=== PATIENT | male | born 1980 | race African-American/Black ===

== ENCOUNTER 2021-10-23 10:45 | Outpatient (REF) | payer MEDICAID, SELFPAY ==
--- NOTE | ~2021-10-23 | XR_ITS ---
EXAMINATION: XR ABDOMEN KUB CLINICAL INDICATION: Right lower quadrant pain x4 months. COMPARISON: None TECHNIQUE: AP view of the abdomen. FINDINGS: There is scattered stool and gas seen in colon without distention. There is no organomegaly. No radiopaque renal calculi. No gross bony abnormality. XR/XR abdomen 1V IMPRESSION: Mild constipation.
== END 2021-10-23 10:46 | disposition home or self-care (01) ==
LOC: HO.XRAY 10:45
PROVIDERS: Visit Provider Internal Medicine
DX: R10.31 Right lower quadrant pain (principal)
CPT/HCPCS: 74018

== ENCOUNTER 2022-04-11 15:42 | Outpatient (REF) | payer OTHER, SELFPAY ==
[2022-04-11 16:48] LABS: Basophils Percent Auto 0.5 % (0-2); Eosinophils Absolute Auto 0.1 X10*3/uL (0.0-0.4); Eosinophils Percent Auto 1.5 % (0-4); Hematocrit 42.9 % (42.0-52.0); Hemoglobin 14.9 g/dl (14.0-18.0); Imm Gran Abs Auto 0.02 X10*3/uL (0.00-0.03); Imm Gran Pct Auto 0.3 % (0.0-0.4); Lymphocytes Absolute Auto 2.2 X10*3/uL (1.2-4.9); Lymphocytes Percent Auto 27.9 % (20-40); MANUAL DIFF FLAG NO; Mean Corpuscular HGB Conc 34.7 g/dl (31.0-36.0); Mean Corpuscular Hemoglobin 29.9 pg (27.0-33.0); Mean Platelet Volume 10.3 fL (9.4-12.4); Monocytes Absolute Auto 0.6 X10*3/uL (0.1-1.2); Monocytes Percent Auto 7.1 % (2-11); Neutrophils Percent Auto 62.7 % (45-73); Platelet Count 249 X10*3/uL (160-400); Red Blood Count 4.99 X10*6/uL (4.60-5.80); Red Cell Distribution Width 13.1 % (11.0-16.0); White Blood Count 7.9 X10*3/uL (4.8-10.8)
[2022-04-11 17:26] LABS: Erythrocyte Sedimentation Rate 8 MM/HR (0-15)
[2022-04-11 19:23] LABS: Alanine Aminotransferase 35 U/L (0-40); Albumin Level 4.5 g/dL (3.5-5.0); Alkaline Phosphatase 50 U/L (39-117); Anion Gap 15 (12-20); Aspartate Amino Transferase 31 U/L (5-37); Bilirubin Total 0.4 mg/dL (0.0-1.0); Blood Urea Nitrogen 14 mg/dL (9-16); C Reactive Protein 0.32 mg/dL (< or = 0.50); Calcium 9.9 mg/dL (8.4-10.2); Carbon Dioxide 27 mmol/L (22-29); Chloride 100 mmol/L (96-108); Estimated Glomerular Filt Rate > 60; Glucose Random 89 mg/dL (60-115); Sodium 138 mmol/L (135-145)
[2022-04-11 19:44] LABS: Thyroid Stimulating Hormone 0.58 uIU/mL (0.32-4.0)
== END 2022-04-11 15:43 | disposition home or self-care (01) ==
LOC: HO.LAB 15:42
PROVIDERS: Visit Provider Physician Assistant
DX: R10.9 Unspecified abdominal pain (principal)
CPT/HCPCS: 36415; 80053; 84443; 85025; 85652; 86140; 99202

== ENCOUNTER 2023-05-18 09:08 | Outpatient (REF) | payer OTHER, SELFPAY ==
[2023-05-18 14:24] LABS: MANUAL DIFF FLAG NO
[2023-05-18 14:28] LABS: Basophils Absolute Auto 0.1 X10*3/uL (0.0-0.2); Basophils Percent Auto 0.8 % (0-2); Eosinophils Absolute Auto 0.1 X10*3/uL (0.0-0.4); Hematocrit 44.6 % (42.0-52.0); Hemoglobin 14.8 g/dl (14.0-18.0); Imm Gran Abs Auto 0.02 X10*3/uL (0.00-0.03); Imm Gran Pct Auto 0.3 % (0.0-0.4); Lymphocytes Absolute Auto 2.5 X10*3/uL (1.2-4.9); Lymphocytes Percent Auto 38.7 % (20-40); Mean Corpuscular HGB Conc 33.2 g/dl (31.0-36.0); Mean Corpuscular Volume 87.3 fL (80.0-98.0); Monocytes Absolute Auto 0.5 X10*3/uL (0.1-1.2); Monocytes Percent Auto 7.3 % (2-11); Neutrophils Absolute Auto 3.3 x10*3/uL (2.0-8.3); Neutrophils Percent Auto 50.9 % (45-73); Platelet Count 257 X10*3/uL (160-400); Red Blood Count 5.11 X10*6/uL (4.60-5.80); Red Cell Distribution Width 13.6 % (11.0-16.0); White Blood Count 6.4 X10*3/uL (4.8-10.8)
[2023-05-18 15:17] LABS: Alanine Aminotransferase 32 U/L (0-40); Albumin Level 4.4 g/dL (3.5-5.0); Alkaline Phosphatase 46 U/L (39-117); Anion Gap 17 (12-20); Aspartate Amino Transferase 29 U/L (5-37); Bilirubin Total 0.7 mg/dL (0.0-1.0); Blood Urea Nitrogen 19 mg/dL (9-16); Calcium 9.6 mg/dL (8.4-10.2); Carbon Dioxide 26 mmol/L (22-29); Chloride 101 mmol/L (96-108); Cholesterol 221 mg/dL; Estimated Glomerular Filt Rate > 60; Glucose Fasting 70 mg/dL (60-99); HDL Cholesterol 35 mg/dL; LDL Cholesterol Calculated 148 mg/dl; Potassium 4.2 mmol/L (3.3-5.1); Sodium 140 mmol/L (135-145); Triglycerides 194 mg/dL
[2023-05-18 15:34] LABS: TSH reflex Free T4 0.81 uIU/mL (0.32-4.0)
== END 2023-05-18 09:09 | disposition home or self-care (01) ==
LOC: HO.CHCLDS 09:08
PROVIDERS: Visit Provider Internal Medicine
DX: I10 Essential (primary) hypertension (principal)
CPT/HCPCS: 36415; 80053; 80061; 84443; 85025

== ENCOUNTER 2023-06-30 08:03 | Outpatient (REF) | payer OTHER, SELFPAY ==
--- NOTE | ~2023-06-30 | CT_ITS ---
EXAMINATION: CT ABDOMEN AND PELVIS WITH CONTRAST CLINICAL INFORMATION: Right lower quadrant pain. COMPARISON: Abdominal radiograph 10/23/2021. TECHNIQUE: Multidetector volumetric images were obtained from the superior aspect of the liver through the pubic symphysis following administration 85 mL of Omnipaque 350 intravenous contrast. Sagittal and coronal reformatted images were obtained on the technologist's workstation. Oral contrast: No This CT examination was performed using dose optimization techniques as appropriate, variously including the following: *Automated exposure control *Adjustment of mA and/or kV according to patient size (this includes techniques or standardized protocols for targeted exams where dose is matched to indication/reason for exam; i.e. extremities or head) *Use of iterative reconstruction technique DLP: 535 mGy-cm FINDINGS: LUNG BASES: The visualized lung bases are unremarkable. LIVER, GALLBLADDER, AND BILIARY TREE: The liver is mildly enlarged measuring 19 cm in length. Attenuation appears normal. No cirrhotic morphology. No discrete liver mass. No biliary ductal dilatation. The gallbladder is unremarkable with no evidence of radiopaque gallstones, gallbladder wall thickening, or obvious pericholecystic inflammatory changes. PANCREAS: No discrete pancreatic mass. No ductal dilatation. SPLEEN: Normal. ADRENAL GLANDS: No adrenal mass. KIDNEYS AND URETERS: The kidneys are normal in size, shape, and attenuation. No hydronephrosis, hydroureter, or calculi seen. Tiny hypodensity in the lower pole left kidney is too small to characterize therefore classified Bosniak 2. No follow-up imaging is recommended. No perinephric stranding. BLADDER: Unremarkable. GASTROINTESTINAL TRACT: The small bowel is normal in caliber. The large bowel is normal in caliber. The appendix is normal. No mesenteric mass or fluid. No focal bowel wall thickening. No discrete bowel mass. ABDOMINAL WALL: No significant hernia is appreciated. LYMPH NODES: No lymphadenopathy. VASCULAR: No aortic aneurysm. PELVIC VISCERA: The prostate and seminal vesicles are unremarkable. OSSEOUS STRUCTURES: Mild degenerative changes in the spine. Mild degenerative changes in the hips. CT/CT abdomen pelvis w IV con IMPRESSION: No explanation for right lower quadrant abdominal pain. Normal appendix. Mild hepatomegaly. Normal size spleen. Fleischner guidelines were followed.
[2023-06-30] MEDS: iohexoL 350 MG/ML 100 ML INFUS..BTL 85 ML IV (10:08)
== END 2023-06-30 08:04 | disposition home or self-care (01) ==
LOC: HO.CT 08:03
PROVIDERS: PCP Internal Medicine; Visit Provider Internal Medicine
DX: R10.31 Right lower quadrant pain (principal)
CPT/HCPCS: 74177; Q9967

== ENCOUNTER 2024-06-20 15:37 | Outpatient (REF) | payer OTHER, SELFPAY ==
[2024-06-21 16:47] LABS: Lyme Abs Screen <0.90 index
== END 2024-06-20 15:38 | disposition home or self-care (01) ==
LOC: HO.CHCLDS 15:37
PROVIDERS: Visit Provider Internal Medicine
DX: R20.0 Anesthesia of skin (principal); R20.2 Paresthesia of skin
CPT/HCPCS: 36415; 86617; 86618

== ENCOUNTER 2025-07-29 13:28 | Outpatient (AMB) | payer OTHER, SELFPAY ==
--- NOTE | 2025-07-29 13:39 | A.OFFVIS_ITS ---
Intake Visit Reasons: [facility]ILLER/HHC referral for LE swelling/ Intake Note: New patient presents for leg swelling, right leg is worse. Has been a few months. Legs get stiff and at times painful behind the right knee. Accompanied by: Self / Same As Patient Allergies No Known Allergies Allergy (Verified 07/29/25 13:41) HPI HPI BEEF KILLER/HHC referral for LE swelling/ : Details: Very pleasant 45-year-old patient presents for painful varicose veins. Complaints include pain over varicosities, swelling of lower extremities, cramping, fatigue, and heaviness of the lower extremities. It has been affecting there daily activities including walking. It is noted more so in right leg. He is in particular concerned about a cluster of varicosities in his right thigh. Patient reports of what sounds to be sclero injections in the right thigh venous cluster that happened a proximally 10 years ago of what appears to be at [facility]. Patient denies any history of DVT/ PE. Patient denies any history of phlebitis. Trial of compression includes - [id number] They now present for vascular evaluation regarding their varicose veins. [facility] Family History Sister Diabetes Mother Heart disease Maternal Grandmother Diabetes Social History Household Members: Spouse and Children Alcohol intake: never Patient Tobacco Use Status: Never used Tobacco Review of Systems Const Reports as per HPI ENT Reports no additional complaints Card Denies chest pain, Denies chest pain at rest and Denies chest pain with activity Resp Denies chest congestion and Denies cough GI Reports no additional complaints Musc Details: pain over varicosities, aching of lower extremities, swelling, cramping, heaviness and tiredness, itching Denies abnormal gait Skin/Breast Reports pruritus and Denies wounds Neuro Reports no additional complaints and Denies abnormal gait Psych Denies no additional complaints Physical Exam Const General: cooperative, healthy appearing and comfortable Orientation/consciousness: oriented to person, oriented to place and oriented to time Neck Carotids: no bruits Chest Chest palpation & inspection: normal inspection of the chest and normal palpation of entire chest wall Resp Effort & Inspection: normal respiratory effort and able to speak in complete sentences Cardio Rate: regular rate Heart sounds: S1 normal heart sound present and S2 normal heart sound present Peripheral pulses: Peripheral pulses 2+ throughout GI Inspection: Yes normal to inspection Skin Other: +2 edema, large rope-like varicosities greater than 4 mm right thigh cluster CEAP Classification C4 - skin color changes Ep - Etiology Primary As - superficial veins P - reflux General skin exam: dry skin Neuro General: oriented to person, oriented to place and oriented to time Extrem Right lower extremity: full ROM, normal capillary refill and edema Left lower extremity: full ROM, normal capillary refill and edema Psych Mental Status: mental status grossly normal Assessment & Plan Assessment & Plan (1) Varicose veins of right lower extremity with inflammation: Code(s): I83.11 - Varicose veins of right lower extremity with inflammation Category: Medical Plan: In short, the patient has evidence of venous insufficiency. I have discussed the pathophysiology with the patient. In addition I have provided informational material regarding venous disease to the patient. We have discussed conservative measures including compression, elevation, and exercise. I have also provided a handout regarding appropriate use of compression stockings and where to purchase good compression stockings as well. I have taken the liberty of ordering venous insufficiency testing with the patient. They will follow up with me after testing. The patient had an opportunity to ask questions regarding the treatment plan. All questions were answered. Imaging studies, laboratory studies and physical exam results were discussed and reviewed in detail. No major barriers to understanding were identified. The patient expressed understanding and agreement with the above treatment plan. The patient is aware they should contact our office by phone for worsening of the current condition or the appearance of new symptoms. Thank you for allowing me to participate in the vascular care of this patient. If you have any questions or concerns regarding the treatment for the above condition please do not hesitate to contact me. The office telephone contact is [phone]. This note is constructed using voice recognition software. While every effort has been made to ensure accuracy, social staff worker errors may have been included. Thank you for allowing me to participate in the care of your patient. Yours sincerely, Antonino Lipscomb MD, FACS, R.P.V.I. Orders: Orders US venous duplex LE BI Today I83.11 - Varicose veins of right lower extremity with inflammation Coding Level of Care Code New Pt Level 4 (38342) Diagnoses Varicose veins of right lower extremity with inflammation I83.11
--- OUTSIDE RECORDS SUMMARY | 2025-07-29 16:20 | XMS_ITS | Clinical Summary ---
Author Organization [employer] Address [address] [place] [address] Care Team Providers Care Medical Library Assistant Name Role Phone Carla Medrano MD Primary Care Provider Allergies No known active allergies Medications lisinopril-hydroC HLOROthiazide 20-25 MG tabletIndications :Primary hypertension Take 1 tablet by mouth in the morning. 30 tablet 3 Active ketoconazole (Nizoral) 2 % shampooIndication s:Pityriasis versicolor Apply topically 2 (two) times a week. 120 mL 11 3 Active Diclofenac Sodium 1 % gelIndications:Ch ronic midline low back pain without sciatica To apply to the affected area 4 times a day 100 g 3 4 Active lisinopril-hydroC HLOROthiazide 20-25 MG tabletIndications :Primary hypertension Take 1 tablet by mouth in the morning. 90 tablet 1 4 Active dexAMETHasone (Decadron) 4 MG tabletIndications :Tingling of right upper extremity Take 1 tablet (4 mg) by mouth Once per day for 3 days. 3 tablet 4 Active methocarbamol (Robaxin) 750 MG tabletIndications :Neck pain Take 1 tablet (750 mg) by mouth 4 times daily for 10 days. 40 tablet 4 Active lisinopril-hydroC HLOROthiazide 20-25 MG tabletIndications :Primary hypertension TAKE ONE TABLET BY MOUTH EVERY MORNING 90 tablet 1 5 Active methocarbamol (Robaxin) 750 MG tabletIndications :Neck pain,Acute pain of right shoulder,Acute midline low back pain without sciatica Take 1 tablet (750 mg) by mouth 4 times daily for 10 days. 40 tablet 5 Active meloxicam (Mobic) 15 MG tabletIndications :Neck pain,Acute pain of right shoulder,Acute midline low back pain without sciatica Take 1 tablet (15 mg) by mouth Once per day. 30 tablet 11 5 02/25/20 26 Active triamcinolone (Kenalog) 0.1 % ointmentIndicatio ns:Hx of nummular eczema Apply topically 2 times daily. 30 g 5 Active Active Problems Problem Noted Date Diagnosed Date Hypertension 01/10/2022 Esophagitis 09/21/2015 Polyp of colon 09/21/2015 Encounters Date Type Department Care Team Description 05/28/2025 9:00 AM EDT Office Visit [facility] [address] [place] [address] Carla Medrano MD Primary hypertension (Primary Dx); Hx of nummular eczema; Venous insufficiency; Acute pain of right knee; Dietary counseling; Exercise counseling; Class 1 obesity due to excess calories with serious comorbidity and body mass index (BMI) of 33.0 to 33.9 in adult 05/28/2025 Telephone [facility] [address] [place] [address] Carla Medrano MD Durable Medical Equipment 05/28/2025 Travel from Last 3 Months Immunizations Immunization Administration Dates Next Due Influenza injectable quadriv alent preservative free 07/13/2023,09/29/2022,07/28/2017 Tdap 04/16/2019,07/28/2017 Family History Medical History Relation Name Comments Stroke Brother Depression Mother hypertension Mother Diabetes type I Sister Relation Name Status Comments Brother Mother Sister Social History Tobacco Use Types Packs/Day Years Used Date Smoking Tobacco: Former Cigarettes 1 4 1 998 - 2001 Smokeless Tobacco: Never Tobacco Cessation:Counseling Given: No Depression Answer Date Recorded Patient Health Questionnaire-9 Score 7 02/24/2025 Patient Health Questionnaire-9 Score 7 02/24/2025 Last PHQ-9: Questionnaire Data Not on file 0 02/24/2025 Housing Stability Answer Date Recorded What is your housing situation today? I have kamari martins 02/24/[address] you li ve. Do you have problems with any of the following? None of the above 02/24/2025 Food Insecurity Answer Date Recorded Within the past 12 months, y ou worried that your food would run out before you got money to buy more: Never True 02/24/2025 Within the past 12 months,th e food you bought just didn't last and you didn't have enough money to get more: Never True 09/2025 Transportation Answer Date Recorded In the past 12 months, has l ack of transportation kept you from medical appts, meetings, work or from getting things needed for daily living? No 02/24/2025 Utilities Answer Date Recorded In the past 12 months, has t he electric, gas, oil or water company threatened to shut off services in your home? No 02/24/2025 Depression Answer Date Recorded Patient Health Questionnaire-2 Score 1 02/24/2025 Internet Access Answer Date Recorded Internet Access Q1 Yes 02/24/2025 Internet Access Q2 Not on file 02/24/2025 Sex and Gender Information Value Date Recorded Sex Assigned at Male 08/15/2022 10:16 AM EDT Legal Sex Male 10:16 AM EDT Gender Identity Male 08/15/2022 10:16 AM EDT Sexual Orientation Straight 08/15/2022 10 :16 AM EDT Last Filed Vital Signs Vital Sign Reading Time Taken Comments Blood Pressure 136/91 05/28/2025 8:49 AM EDT Pulse 94 05/28/2025 8:49 AM EDT Temperature 36.3 C (97.4 F) 05/28/2025 8:49 AM EDT Respiratory Rate 20 05/28/2025 8:49 AM EDT Oxygen Saturation 98% 05/28/2025 8:49 AM EDT Inhaled Oxygen Concentration - - Weight 112 kg (246 lb) 05/28/2025 8:49 AM EDT Height 182.9 cm (6') 05/28/2025 8:49 AM EDT Body Mass Index 33.36 05/28/2025 8:49 AM EDT Plan of Treatment Health Maintenance Due Date Last Done Comments CT Colonography 1980 Colonoscopy 1980 Colorectal Cancer Screening 1980 FIT DNA/Cologuard 1980 FIT 1980 FOBT 1980 HIV Screening 1980 Sigmoidoscopy 1980 Disability Screening 1980 Family Planning (PISQ) 02/26/1995 HPV Vaccines (1 - Male 3-dose series) 02/26/1995 Hepatitis C Screening 02/26/1998 Hepatitis B Vaccines (1 of 3 - 19+ 3-dose series) 02/26/1999 COVID-19 Vaccine ( - season) 2025 09/29/2022, 01/13/2022, 12/12/2020, Additional history exists Influenza Vaccine (#1) 2025 , 09/29/2022, 07/28/2017 Alcohol/Substance Use Screening 02/24/2026 02/24/2025 Depression Screening 02/24/2026 02/24/2025, 02/25/20 25 SDOH Screening 02/24/2026 02/24/2025 Tobacco Screening 05/28/2026 05/28/2025 Lipid Panel 05/18/2028 05/18/2023, 09/06/2021 DTaP/Tdap/Td Vaccines (3 - Td or Tdap) 04/16/2029 04/16/2019, 07/28/2017 Zoster Vaccines (1 of 2) 02/26/2030 RSV Patients and Patients Aged 60 years or older (1 - 1-dose 75+ series) 02/26/2055 HIB Vaccines Aged Out No longer eligi ble based on patient's age to complete this topic Hepatitis A Vaccines Aged Out No long er eligible based on patient's age to complete this topic IPV Vaccines Aged Out No longer eligi ble based on patient's age to complete this topic Meningococcal B Vaccine Aged Out No l onger eligible based on patient's age to complete this topic Meningococcal Vaccine Aged Out No arnel nasim eligible based on patient's age to complete this topic Pneumococcal Vaccine: Pediatrics (0 to 5 Years) and At-Risk Patients (6 to 49) Years Aged Out No longer eligible based on patient's age to complete this topic RSV under 20 months Aged Out No longe r eligible based on patient's age to complete this topic Rotavirus Vaccines Aged Out No longer eligible based on patient's age to complete this topic Procedures Procedure Name Priority Date/Time Associated Diagnosis Comments LIPID PANEL, STANDARD Routine 05/18/2023 9:12 AM EDT Primary hypertension from Last 3 Months or Most Recently Relevant to Health Maintenance Results * Lipid Panel, Standard (05/18/2023 9:12 AM EDT) Triglycerides 194 mg/dL [facility] Comment:Desirable Triglyceri de: less than 150 mg/dLBorderline High Triglyceride 150-199 mg/dLHigh Triglyceride: 200-499 mg/dLVery High Triglyceride: greater than or equal to 5OO mg/dL Cholesterol 221 mg/dL [facility] Comment:Desirable Cholestero l: less than 200 mg/dLBorderline High Cholesterol: 200-239 mg/dLHigh Cholesterol: greater than 239 mg/dL LDL Cholesterol Calculated 148 mg/dl [facility] Comment:Desirable LDL: less than 100 mg/dLNear Optimal/Above Optimal LDL: 110- 129 mg/dLBorderline High LDL: 130-159 mg/dLHigh LDL: 160-189 mg/dLVery High LDL: greater than or equal to 190 mg/dL HDL Cholesterol 35 mg/dL [facility] Comment:Desirable HDL: great er than 40 mg/dL Note: This HDL assay may give artificially low results in patients with liver disease. Blood Venous blood specimen / Unknown 05/18/2023 9:12 AM EDT 05/18/2023 2:19 PM EDT Carla Medrano MD LAB BLOOD ORDERABLES Final Result [facility] [address] [place] [address] [phone] from Last 3 Months or Most Recently Relevant to Health Maintenance Insurance [facility] 2 Care Teams Medical Library Assistant Relationship Specialty Start Date End Date Carla Medrano MD [address] [place] [address] PCP - General Internal Medicine 10/16/18
--- OUTSIDE RECORDS SUMMARY | 2025-07-29 16:20 | XMS_ITS | Encounter Summary ---
Author Organization [employer] Address [address] [place] [address] Care Team Providers Care Water Truck Driver Name Role Phone Carla Medrano MD Primary Care Provider [phone] Reason for Visit * Reason Onset Date Comments Nurse Triage 02/19/2025 Encounter Details Date Type Department Care Team ([facility] Contact Info) Description 02/19/2025 Telephone [facility] [address] [place] [address] Carla Medrano MD [address] [place] [address] Nurse Triage Social History Tobacco Use Types Packs/Day Years Used Date Smoking Tobacco: Former Cigarettes 1 4 1 998 - 2001 Smokeless Tobacco: Never Depression Answer Date Recorded Patient Health Questionnaire-9 Score 13 06/01/2023 Housing Stability Answer Date Recorded What is your housing situation today? I have kamarifrantz martins 08/06/[address] you li ve. Do you have problems with any of the following? None of the above 08/06/2023 Food Insecurity Answer Date Recorded Within the past 12 months, y ou worried that your food would run out before you got money to buy more: Never True 08/06/2023 Within the past 12 months,th e food you bought just didn't last and you didn't have enough money to get more: Never True Transportation Answer Date Recorded In the past 12 months, has l ack of transportation kept you from medical appts, meetings, work or from getting things needed for daily living? No 08/06/2023 Utilities Answer Date Recorded In the past 12 months, has t he electric, gas, oil or water company threatened to shut off services in your home? No 08/06/2023 Depression Answer Date Recorded Patient Health Questionnaire-2 Score 4 06/01/2023 Sex and Gender Information Value Date Recorded Sex Assigned at Male 08/15/2022 10:16 AM EDT Legal Sex Male 10:16 AM EDT Gender Identity Male 08/15/2022 10:16 AM EDT Sexual Orientation Straight 08/15/2022 10 :16 AM EDT documented as of this encounter Miscellaneous Notes * Telephone Encounter - Carissa Avila RN - 02/19/2025 12:42 PM EDT Triage call Pt reports back pain, upper area radiating to neck and shoulders. Pt reports pain is very sharp at times. Pt denies injury but, Pt works with some heavy lifting in metal shop. Pt is able to ambulate and continues to work . Pt reports sleeping at night must be on side or the pain is sharp as well. Pt is advised to alternate tylenol/motrin and use ice or heat. Pt reports patches have been helping. Pt agrees with disposition. ASK apt with Dr. Medrano 02/24/15 @ 1115am. Insurance is verified as active prior to booking. Protocol Used: Back Pain (Adult) Protocol-Based Disposition: See in Office or Video Visit within 2 Weeks Video visit not offered Positive Triage Question: * Back pain lasts > 2 weeks * All higher-acuity triage questions were negative Care Advice Discussed: * Reassurance and Education - Back Pain * Cold or Heat * Sleep * Continue Activity * Pain Medicines * Pain Medicines - Extra Notes and Warnings * Reasons To Call Back - Fever occurs - Numbness or weakness occurs - Loss of control of your bladder or bowel - Severe pain not better after taking pain medicines - Pain begins to shoot into the leg - Pain lasts over 2 weeks - Pain becomes worse - You become worse * Telephone Encounter - Tonie Elias - 02/19/2025 12:29 PM EDT Symptoms: Back Pain - Not From Injury, Neck Pain - Not From Injury Outcome: Schedule an urgent appointment (within 4 hours) or talk to a nurse or provider soon Reason: Getting worse The caller accepted this outcome. Contact pt at [phone] documented in this encounter Plan of Treatment Not on file documented as of this encounter Visit Diagnoses Not on filedocumented in this encounter Additional Health Concerns Assessment Noted Time PHQ-9 Depression Total Score: 13 023 11:55 AM EDT documented as of this encounter Care Teams Water Truck Driver Relationship Specialty Start Date End Date Carla Medrano MD [address] [place] [id number] PCP - General Internal Medicine 10/16/18 documented as of this encounter
--- OUTSIDE RECORDS SUMMARY | 2025-07-29 16:20 | XMS_ITS | Encounter Summary ---
Author Organization [employer] Address [address] [facility] [address] [place] [address] Care Team Providers Care Customer Engagement Specialist Name Role Phone Carla Medrano MD Primary Care Provider [phone]- [phone] Reason for Referral * Consultation (Routine) - Closed Specialty Diagnoses / Procedures Referred By Contac t Referred To Contact Physical Therapy Diagnoses Neck pain Cervical spondylosis Carla Medrano MD [address] [place] [address] Phone: tel: fax: Physical Therapy, AT [address] [place] [address] Dr Elsi [place] Phone: tel: fax: Referral ID Status Reason Start Date Expiration Date V isits Requested Visits Authorized [id number] Closed Specialty Services Required 2025 2026 1 1 Encounter Details Date Type Department Care Team (Late st Contact Info) Description 2025 Orders Only [facility] [address] [place], [place] [phone] Carla Medrano MD [address] [place], [place] [phone] Neck pain (Primary Dx); Cervical spondylosis Social History Tobacco Use Types Packs/Day Years [...] AM EDT documented as of this encounter Plan of Treatment Scheduled Referrals Name Type Priority Associated Diagnoses Orde r Schedule Referral to Physical Therapy Outpatient Referral Routine Neck pain Cervical spondylosis Expected: 2025 (Approximate), Expires: 2026 documented as of this encounter Visit Diagnoses Diagnosis Neck pain- Primary Cervicalgia Cervical spondylosis Cervical spondylosis without myelopathy documented in this encounter Additional Health Concerns Assessment Noted Time PHQ-9 Depression Total Score: 7 02/25/20 25 1:19 PM EDT documented as of this encounter Care Teams Customer Engagement Specialist Relationship Specialty Start Date End Date Carla Medrano MD [address] [place] [address] PCP - General Internal Medicine 10/16/18 documented as of this encounter
== END 2025-07-29 14:07 | disposition home or self-care (01) ==
LOC: HO.HVS 13:28
PROVIDERS: PCP Internal Medicine; Visit Provider Surgery Vascular Surgery
DX: I83.11 Varicose veins of right lower extremity with inflammation (principal)
CPT/HCPCS: 99204

== ENCOUNTER → 2025-07-29 13:28 | Outpatient (BNVA) | payer OTHER, SELFPAY | PROVIDERS: PCP Internal Medicine; Visit Provider Surgery Vascular Surgery | DX: I83.11 Varicose veins of right lower extremity with inflammation (principal) | CPT/HCPCS: 99202 ==

== ENCOUNTER 2025-08-26 08:16 | Outpatient (REF) | payer OTHER, SELFPAY ==
--- NOTE | ~2025-08-26 | US_ITS ---
EXAMINATION: US LOWER EXTREMITY VENOUS (REFLUX EXAM), BILATERAL CLINICAL INFORMATION: I 83.11 COMPARISON: None. TECHNIQUE: Color flow triplex imaging and compression Doppler was performed to evaluate both the deep and the superficial systems bilaterally. To evaluate the superficial system, the examination was performed in the upright position. Color-flow Doppler ultrasound and compression ultrasound were utilized. In addition, maneuvers were utilized to demonstrate reflux. FINDINGS: 1. DEEP VENOUS ULTRASOUND OF THE RIGHT LOWER EXTREMITY: Common Femoral Vein: Compressible, normal respiratory variation and augmented flow. Femoral Vein: Compressible, normal color flow and augmentation. Popliteal Vein: Compressible, normal augmentation. Deep Reflux: There is no evidence of reflux in the deep system in either the common femoral vein, superficial femoral or the popliteal vein. There is no evidence of a Hayes's cyst. 2. SUPERFICIAL ULTRASOUND WITH DOPPLER OF RIGHT LOWER EXTREMITY: GREAT SAPHENOUS VEIN: Saphenofemoral Junction: 0.4 cm; Reflux: 0 ms Proximal Thigh: 0.6 cm; Reflux: 0 ms Mid Thigh: Not seen. Distal Thigh: 0.5 cm; Reflux: 2660 ms At Knee: 0.3 cm; Reflux: 3172 ms Proximal Calf: 0.2 cm; Reflux: 0 ms Mid Calf: 0.15 cm; Reflux: 0 ms Distal Calf: 0.2 cm; Reflux: 0 ms DUPLICATED MEDIAL GREAT SAPHENOUS VEIN: Diameter: None imaged Reflux: NA DUPLICATED LATERAL GREAT SAPHENOUS VEIN: Diameter: 0.2 cm. Reflux: NA SMALL SAPHENOUS VEIN: Saphenopopliteal Junction: 0.2 cm; Reflux: 0 ms Proximal: 0.2 cm; Reflux: 0 ms Distal: 0.2 cm; Reflux: 0 ms VEIN OF GIACOMINI: Size: NA Reflux: NA PERFORATORS: Location: Proximal and Midcalf. Mid to distal thigh. Size: 0.2, 0.3, 0.6 and 0.4 cm. Reflux: 2796 ms in the mid calf. 2996 ms in the distal thigh. 2228 ms in the proximal calf. VARICOSITIES: Location: Distal thigh. Mid calf and at the knee. Size: 0.4 and 0.5 cm. Reflux: 2648 ms in the distal thigh. 2576 ms at the knee. 2900 ms in the mid calf. 3. DEEP VENOUS ULTRASOUND OF THE LEFT LOWER EXTREMITY: Common Femoral Vein: Compressible, normal respiratory variation and augmented flow. Femoral Vein: Compressible, normal color flow and augmentation. Popliteal Vein: Compressible, normal augmentation. Deep Reflux: 2896 ms in the popliteal vein. There is no evidence of a Hayes's cyst. 4. SUPERFICIAL ULTRASOUND WITH DOPPLER OF LEFT LOWER EXTREMITY: GREAT SAPHENOUS VEIN: Saphenofemoral Junction: 0.6 cm; Reflux: 0 ms Proximal Thigh: 0.3 cm; Reflux: 0 ms Mid Thigh: 0.4 cm; Reflux: 0 ms Distal Thigh: 0.3 cm; Reflux: 0 ms At Knee: 0.3 cm; Reflux: 0 ms Proximal Calf: 0.3 cm; Reflux: 0 ms Mid Calf: 0.2 cm; Reflux: 3256 ms Distal Calf: 0.2 cm; Reflux: 0 ms DUPLICATED MEDIAL GREAT SAPHENOUS VEIN: Diameter: None imaged Reflux: NA DUPLICATED LATERAL GREAT SAPHENOUS VEIN: Diameter: None imaged. Reflux: NA SMALL SAPHENOUS VEIN: Saphenopopliteal Junction: 0.3 cm; Reflux: 0 ms Proximal: 0.2 cm; Reflux: 0 ms Distal: 0.2 cm; Reflux: 0 ms VEIN OF GIACOMINI: Size: 0.2 cm. Reflux: NA PERFORATORS: Location: Mid and distal thigh. Size: 0.2 cm. Reflux: NA VARICOSITIES: Location: None Imaged Size: NA Reflux: NA US/US venous insuf bilat IMPRESSION: Right: Venous insufficiency, great saphenous vein above and at the knee level. Perforators hand varices with reflux. Left: Venous insufficiency, great saphenous vein at the mid calf. Venous insufficiency in the popliteal vein. Perforators without reflux. Electronically signed by: Florentino Benz MD 08/26/2025 10:43 AM EST
--- OUTSIDE RECORDS SUMMARY | 2025-08-26 08:21 | XMS_ITS | Clinical Summary ---
Author Organization [address] [facility] Address [address] [place] [address] Phone Care Team Providers Care Procurement Professional Logistics Name Role Phone Carla Medrano MD Primary Care Provider [phone] Allergies No known active allergies Medications clonazePAM (KlonoPIN) 0.5 mg tablet Take 1 tablet (0.5 mg total) by mouth 2 (two) times a day if needed. Max Daily Amount: 1 mg 11/23/2023 Active diclofenac (VOLTAREN) 1 % topical gel APPLY TO AFFECTED AREA S) FOUR TIMES DAILY 11/09/2023 Active eszopiclone (LUNESTA) 3 mg tablet Take 1 tablet (3 mg total) by mouth. 11/17/2023 Active lisinopriL (PRINIVIL,ZESTR IL) 5 mg tablet Take 1 tablet (5 mg total) by mouth 1 (one) time each day. 08/24/2021 Active triamcinolone (KENALOG) 0.1 % ointment APPLY TO AFFECTED AREA S) TWO TIMES DAILY 11/09/2023 Active albuterol HFA (PROAIR HFA ; PROVENTIL HFA ; VENTOLIN HFA) 90 mcg/actuation inhaler Inhale 2 puffs by mouth. 10/14/2019 Active gemfibroziL (LOPID) 600 mg tablet Take 1 tablet (600 mg total) by mouth. 11/23/2020 Active ibuprofen (ADVIL,MOTRIN) 600 mg tablet Take 1 tablet (600 mg total) by mouth. 10/14/2019 Active Active Problems Problem Noted Date Diagnosed Date HTN (hypertension) 07/16/2024 Elevated fasting blood sugar 11/23/2020 Hypertriglyceridemia 03/13/2019 Immunizations Immunization Administration Dates Next Due Tdap Tetanus diptheria acell ular pertussis (Boostrix; Adacel) 7yo and older 04/16/2019 Surgical History Surgery Date Site/Laterality Comments OTHER SURGICAL HISTORY PROCEDURE: DENIES PREVIOUS SURGERY Medical History Medical History Date Comments HTN (hypertension) DX:HTN (hyper tension) Family History Medical History Relation Name Comments No Known Problems Brother Depression Father Hyperlipidemia Father Hypertension Father Depression Mother Hyperlipidemia Mother Hypertension Mother Diabetes Sister 1 Depression Sister 2 Depression Sister 3 Depression Sister 4 Relation Name Status Comments Brother Alive Father Alive Mother Alive Sister 1 Alive Sister 2 Alive Sister 3 Alive Sister 4 Alive Social History Tobacco Use Types Packs/Day Years Used Date Smoking Tobacco: Never Smokeless Tobacco: Never Alcohol Use Standard Drinks/Week Comments Yes 0 (1 standard drink = 0.6 oz pur e alcohol) Sex and Gender Information Value Date Recorded Sex Assigned at Not on file Legal Sex Male 5:42 PM EST Gender Identity Not on file Sexual Orientation Not on file Obstetrics History Last Filed Vital Signs Vital Sign Reading Time Taken Comments Blood Pressure - - Pulse - - Temperature - - Respiratory Rate - - Oxygen Saturation - - Inhaled Oxygen Concentration - - Weight 114 kg (252 lb) 08/21/2024 8:32 AM EST Height 182.9 cm (6' 0.01 ) 08/21/2024 8:32 AM ES T Body Mass Index 34.17 08/21/2024 8:32 AM EST Plan of Treatment Health Maintenance Due Date Last Done Comments Colorectal Cancer Screening: Colonoscopy 1980 Hepatitis B Vaccines (1 of 3 - 19+ 3-dose series) 02/26/1999 HPV Vaccines (1 - 3-dose SCD M series) 02/26/2007 HIV Screening 09/17/2022 Hepatitis C Screening 09/17/2022 Social Influencers of Health Screening 09/17/2022 Hypertension/CHF/CAD Annual BMP Blood Test 09/22/2022 11/16/2020 Depression Screening 10/16/2024 COVID-19 Vaccine (1 - 2024-2 6 season) 2025 Influenza Vaccine (#1) 2025 07/13/2023 Cholesterol Screening (Lipid Panel) 05/18/2028 05/18/2023, 11/16/2020 DTaP,Tdap,and Td Vaccines (2 - Td or Tdap) 04/16/2029 04/16/2019 RSV Immunization Adult Patients (1 - 1-dose 75+ series) 02/26/2055 HIB Vaccines Aged Out No longer eligi ble based on patient's age to complete this topic Hepatitis A Vaccines Aged Out No long er eligible based on patient's age to complete this topic IPV Vaccines Aged Out No longer eligi ble based on patient's age to complete this topic MMR Vaccines Aged Out No longer eligi ble based on patient's age to complete this topic Meningococcal ACWY Vaccine Aged Out N o longer eligible based on patient's age to complete this topic Meningococcal B Vaccine Aged Out No l onger eligible based on patient's age to complete this topic Pneumococcal Vaccine: Pediatrics (0 to 5 Years) and At-Risk Patients (6 to 49 Years) Aged Out No longer eligible b ased on patient's age to complete this topic RSV Immunization Patients Under 20 months Aged Out No longer eligible b ased on patient's age to complete this topic Varicella Vaccines Aged Out No longer eligible based on patient's age to complete this topic Procedures Procedure Name Priority Date/Time Associated Diagnosis Comments ANNUAL BMP BLOOD TEST Routine 11/16/2020 LIPID PANEL Routine 11/16/2020 from Last 3 Months or Most Recently Relevant to Health Maintenance Results * Annual BMP Blood Test (11/16/2020) Pathologist [facility] Annual BMP Blood Test abstracted Historical Provider HEALTH MAINTENANCE Final Result * (ABNORMAL) Lipid panel (11/16/2020) Pathologist [facility] LDL/HDL Ratio 9(A) 0 - 4 Triglycerides 805(A) 0 - 150 mg/dL Cholesterol 206(A) 0 - 200 mg/dL HDL 23(A) >=40 mg/dL LDL Cholesterol 0 0 - 100 mg/dL Comment:tnp Blood Venous blood specimen / Unknown Historical Provider LAB BLOOD ORDERABLES Capri l Result from Last 3 Months or Most Recently Relevant to Health Maintenance Insurance [facility] Care Teams Procurement Professional Logistics Relationship Specialty Start Date End Date Carla Medrano MD [address] [place] [address] PCP - General 11/10/23
--- OUTSIDE RECORDS SUMMARY | 2025-08-26 08:21 | XMS_ITS | Encounter Summary ---
Author Organization [employer] Address [address] [facility] [address] [place] [address] Care Team Providers Care Color Maker Dyer Name Role Phone Carla Medrano MD Primary Care Provider [phone] Reason for Referral * Consultation (Routine) - Closed Specialty Diagnoses / Procedures Referred By Contac t Referred To Contact Physical Therapy Diagnoses Neck pain Cervical spondylosis Carla Medrano MD [address] [place] [address] Phone: tel: fax: Physical Therapy, AT [address] [place] [address] Dr Elsi [place] Phone: tel: fax: Referral ID Status Reason Start Date Expiration Date V isits Requested Visits Authorized [id number] Closed Specialty Services Required 2025 2026 1 1 Encounter Details Date Type Department Care Team (Late st Contact Info) Description 2025 Orders Only [facility] [address] [place], [place] [phone] Carla Medrano MD [address] [place], [place] [phone] Neck pain (Primary Dx); Cervical spondylosis Social [...] documented as of this encounter Care Teams Color Maker Dyer Relationship Specialty Start Date End Date Carla Merdano MD [address] [place] [address] PCP - General Internal Medicine 10/16/18 documented as of this encounter
--- OUTSIDE RECORDS SUMMARY | 2025-08-26 08:21 | XMS_ITS | Clinical Summary ---
Author Organization [employer] Address [address] [facility] [address] [place] [address] Care Team Providers Care Meal Room Hand Name Role Phone Carla Medrano MD Primary [...] 05/28/2025 9:00 AM EDT Office Visit [facility] [address] [place] [address] aCrla Medrano MD Primary hypertension (Primary Dx); Hx of nummular eczema; Venous insufficiency; Acute pain of right knee; Dietary counseling; Exercise counseling; Class 1 obesity due to excess calories with serious comorbidity and body mass index (BMI) of 33.0 to 33.9 in adult 05/28/[address] [facility] [address] [place] [address] Carla Medrano MD Durable Medical Equipment 05/28/2025 [...] (05/18/2023 9:12 AM EDT) Triglycerides 194 mg/dL [facility] Comment:Desirable Triglyceri de: less than 150 mg/dLBorderline High Triglyceride 150-199 mg/dLHigh Triglyceride: 200-499 mg/dLVery High Triglyceride: greater than or equal to 5OO mg/dL Cholesterol 221 mg/dL [facility] Comment:Desirable Cholestero l: less than 200 mg/dLBorderline High Cholesterol: 200-239 mg/dLHigh Cholesterol: greater than 239 mg/dL LDL Cholesterol Calculated 148 mg/dl [facility] Comment:Desirable LDL: less than 100 mg/dLNear Optimal/Above Optimal LDL: 110- 129 mg/dLBorderline High LDL: 130-159 mg/dLHigh LDL: 160-189 mg/dLVery High LDL: greater than or equal to 190 mg/dL HDL Cholesterol 35 mg/dL [facility] Comment:Desirable HDL: great er than 40 mg/dL Note: This HDL assay may give artificially low results in patients with liver disease. Blood Venous blood specimen / Unknown 05/18/2023 9:12 AM EDT 05/18/2023 2:19 PM EDT Carla Medrano MD LAB BLOOD ORDERABLES Final Result [facility] [address] [place] [address] [phone] from Last 3 Months or Most Recently Relevant to Health Maintenance Insurance [facility] 2 Care Teams Meal Room Hand Relationship Specialty Start Date End Date Carla Medrano MD [address] [place] [address] PCP - General Internal Medicine 10/16/18
--- OUTSIDE RECORDS SUMMARY | 2025-08-26 08:21 | XMS_ITS | Encounter Summary ---
Author Organization [employer] Address [address] [facility] [address] [place] [address] Care Team Providers Care Ecommerce Manager Name Role Phone Carla Medrano MD Primary Care Provider [phone] Reason for Visit * Reason Onset Date Comments Nurse Triage 02/19/2025 Encounter Details Date Type Department Care Team ([facility] Contact Info) Description 02/19/2025 Telephone [facility] [address] [place] [address] Carla Medrano MD [address] [place] [address] Nurse Triage Social History Tobacco Use Types [...] caller accepted this outcome. Contact pt at [phone] documented in this encounter Plan of Treatment Not on file documented as of this encounter Visit Diagnoses Not on filedocumented in this encounter Additional Health Concerns Assessment Noted Time PHQ-9 Depression Total Score: 13 023 11:55 AM EDT documented as of this encounter Care Teams Ecommerce Manager Relationship Specialty Start Date End Date Carla Medrano MD [address] [place] [address] PCP - General Internal Medicine 10/16/18 documented as of this encounter
== END 2025-08-26 08:17 | disposition home or self-care (01) ==
LOC: HO.US 08:16
PROVIDERS: PCP Internal Medicine; Visit Provider Surgery Vascular Surgery
DX: I83.11 Varicose veins of right lower extremity with inflammation (principal)
CPT/HCPCS: 93970

== ENCOUNTER → 2025-08-26 08:18 | Outpatient (BNV) | payer OTHER, SELFPAY | PROVIDERS: PCP Internal Medicine; Visit Provider Radiology Diagnostic Radiology | DX: I83.11 Varicose veins of right lower extremity with inflammation (principal) | CPT/HCPCS: 93970 ==